=== PATIENT | male | born 1960 | race Caucasian/White ===

== ENCOUNTER 2016-12-13 17:27 | Observation (INO) | payer OTHER ==
[~2016-12-13] VITALS: Ht 182.9 cm; Wt 116.7 kg
[2016-12-13] VITALS (7 sets, daily range): BP systolic 122–159; BP diastolic 75–91
[2016-12-13 17:48] LABS: HEMOGLOBIN 13.4 g/dL (14.1-18.0); LYMPH % 28.1 % (10-50)
--- NOTE | 2016-12-13 17:58 | Emergency Room Report ---
History of Present Illness Time Seen by [id number] Presenting Problem in Triage Pt arrived:Walked Presenting Problem:POSSIBLE APPENDICITIS Onset of symptoms date/time:12/13/16/ or onset unknown for:MEDICAL HX UNKNOWN Treatment Prior to Arrival: ACUTE CARE ASSISTANT Provided by: Sepsis Risk Assessment: Temp: 98.3 B/P: 135/75 MAP: 113 Pulse: 75 Resp: 18 Recent fever? N Clinical Suspician of Infection? Y Mental Status: 1 - Regular (Normal Baseline) Sepsis Risk:Low Sepsis Risk Have you (or family members/close friends) recently traveled outside the [place]? N If Yes, where/when: Have you had exposure to infectious disease within the past month? TB? Other? Specify: Comment The patient complains of RIGHT lower quadrant abdominal pain that began last evening. He initially noticed that when he would cough or deep breathe that he would have pain in the RIGHT lower quadrant, also noticed after that that he was tender there to touch. It also hurts to go over bumps as in a car. When he lays very still or sits very still he does not have pain. No fever. The pain increased after eating today, but no vomiting. No diarrhea or constipation. No urinary symptoms. The pain only radiates when he coughs or bounces, it then radiates around to his RIGHT anterior thigh. He has had a prior cholecystectomy and umbilical hernia repair. ALLERGIES Coded Allergies: niacin (12/13/16) Home Medications Reported Medications No Known Home Medications History Medical History General Angina: No MA: No Hypertension? No Hyperlipidemia? Yes CHF? No COPD? No Asthma? No Hernia? Yes CVA? No Seizures? No Diabetes? No UTI? No Stones? No GB Disease: Yes Hepatitis? No Cataracts? No Glaucoma? No TB? No Cancer? No Immunization Hx Ped.Immunizations UTD Yes DT/Tetanus > 10 Years Ago Flu HAD IN PAS Pneumonia Never Had Surgical Hx Previous Surgery?Y SHOULDER SURGERY LOWER BACK SURGERY X2 GALLBLADDER HERNIA REPAIR Family History Family Hx Diabetes Yes CAD No Hypertension No Hyperlipidemia Yes Cancer No TB No Social History Smoking Hx Smoker: Current Every Day Smoker Tobacco: Yes Type N/A Packs/day 1 1/2 - 2 Packs Alcohol Alcohol: No Review of Systems All Other Systems Reviewed and Negative Constitutional denies fever Gastrointestinal abdominal pain, denies diarrhea, denies nausea, denies vomiting Genitourinary denies: dysuria, frequency, hematuria. Physical Exam Vital Signs Vital Signs Date Time Temp Pulse Resp B/P Pulse O2 O2 Flow FiO2 Ox Delivery Rate 12/13 1728 98.3 75 18 135/75 96 General Appearance normal appearance, WD/WN Eye Exam - bilateral eye normal exam, bilateral eye PERRL, bilateral eye EOMI Ear, Nose, Throat hearing grossly normal, normal ENT inspection Neck normal inspection, non-tender, supple, full range of motion Respiratory Status Yes: trachea midline, chest symmetrical, non tender chest. No: respiratory distress. Lung Sounds bilateral: normal breath sounds, lungs clear. Cardiovascular normal exam, regular rate/rhythm, no peripheral edema, no gallop, no JVD, no murmur, no rub, normal peripheral pulses Peripheral Pulses Pulses normal Yes Gastrointestinal normal bowel sounds, soft, no organomegaly, guarding, rebound, tenderness (RIGHT lower quadrant), positive Rovsing sign Extremities non-tender, normal range of motion, normal inspection Neurologic alert, administrative professional II-XII nml as tested, normal exam, oriented x 3 Mental status normal mood/affect Skin intact, normal color, warm/dry Medical Decision Making LABS/Meds/Orders Pt receiving controlled substance in ED? No Comment 6:30 PM: Refuses pain medication Results/Orders Laboratory Tests 12/13/16 1735: Sodium 141, Potassium 3.8, Chloride 105, Carbon Dioxide 28, BUN 20 H, Creatinine 1.3, Estimated Creat Clear 74, Estimated GFR (MDRD) 57, Glucose 119 H, Calcium 8.8, Total Bilirubin 0.3, AST 25, ALT 34, Alkaline Phosphatase 39 L, Total Protein 7.9, Albumin 4.1, Globulin 3.8 H, Albumin/Globulin Ratio 1.1, Amylase 71, Lipase 182, WBC 10.5, RBC 4.50 L, Hgb 13.4 L, Hct 40.4 L, MCV 89.8, RDW 12.7, Plt Count 236, MPV 7.9, Gran % 64.1, Gran # 6.8, Lymphocytes % 28.1, Monocytes % 5.9, Eosinophils % 1.3, Basophils % 0.6, Lymphocytes # 3.0, Monocytes # 0.6, Eosinophils # 0.1, Basophils # 0.1, PUBS MCHC 33.2, MCH 29.8 Current Medication Orders Sig/Tulio Start time Last Medication Dose Route Stop Time Status Admin Sodium Chloride 1,000 ML .STK-MED ONE 12/13 1850 DC IV Sodium Chloride 1,000 ML .Q6H40M 12/13 1845 AC 12/13 IV 12/13 2244 1850 Sodium Chloride 10 ML PRN PRN 12/13 1745 AC IV 12/14 1742 Orders Procedure Date/time Status DIET-NOTHING BY MOUTH 12/[address] ABD & PELVIS W/O CONTRAST 12/[address] ABD/PELVIS REQ 12/13 174 Active IV SALINE LOCK 12/13 174 Active URINALYSIS/COMPLETE 12/13 174 Active LIPASE 12/13 174 Complete CBC WITH AUTO DIFF 12/13 174 Complete CHEM 12 PROFILE 12/13 174 Complete AMYLASE 12/13 1741 Complete XRAY/CT/US XRAY/CT/US CT abdomen, pelvis Comment CT scan interpreted by [facility] radiologist. Faxed report received and reviewed: Acute appendicitis, no perforation or abscess. Progress - 6:40 PM: Case discussed with Dr. Connell. He will come to the emergency department to see the patient and will call the banquet houseperson on his way in to have the operating room team called in. Departure Departure Disposition Still a Patient Clinical Impression Primary Impression: Acute appendicitis Qualifiers: Acute appendicitis type: with localized peritonitis Qualified Code: K35.3 - Acute appendicitis with localized peritonitis Condition STABLE Referrals Jun Javed MD (Family) Prescriptions Current Visit Scripts No Known Home Medications ED Critical Care Critical Care No at 2000
--- NOTE | 2016-12-13 17:58 | Emergency Room Report ---
History of Present Illness Time Seen by [id number] Presenting Problem in Triage Pt arrived:Walked Presenting Problem:POSSIBLE APPENDICITIS Onset of symptoms date/time:12/13/16/ or onset unknown for:MEDICAL HX UNKNOWN Treatment Prior to Arrival: REGIONAL LIAISON Provided by: Sepsis Risk Assessment: Temp: 98.3 B/P: 135/75 MAP: 113 Pulse: 75 Resp: 18 Recent fever? N Clinical Suspician of Infection? Y Mental Status: 1 - Regular (Normal Baseline) Sepsis Risk:Low Sepsis Risk Have you (or family members/close friends) recently traveled outside the [place]? N If Yes, where/when: Have you had exposure to infectious disease within the past month? TB? Other? Specify: Comment The patient complains of RIGHT lower quadrant abdominal pain that began last evening. He initially noticed that when he would cough or deep breathe that he would have pain in the RIGHT lower quadrant, also noticed after that that he was tender there to touch. It also hurts to go over bumps as in a car. When he lays very still or sits very still he does not have pain. No fever. The pain increased after eating today, but no vomiting. No diarrhea or constipation. No urinary symptoms. The pain only radiates when he coughs or bounces, it then radiates around to his RIGHT anterior thigh. He has had a prior cholecystectomy and umbilical hernia repair. ALLERGIES Coded Allergies: niacin (12/13/16) Home Medications Reported Medications No Known Home Medications History Medical History General Angina: No IN: No Hypertension? No Hyperlipidemia? Yes CHF? No COPD? No Asthma? No Hernia? Yes CVA? No Seizures? No Diabetes? No UTI? No Stones? No GB Disease: Yes Hepatitis? No Cataracts? No Glaucoma? No TB? No Cancer? No Immunization Hx Ped.Immunizations UTD Yes DT/Tetanus > 10 Years Ago Flu HAD IN PAS Pneumonia Never Had Surgical Hx Previous Surgery?Y SHOULDER SURGERY LOWER BACK SURGERY X2 GALLBLADDER HERNIA REPAIR Family History Family Hx Diabetes Yes CAD No Hypertension No Hyperlipidemia Yes Cancer No TB No Social History Smoking Hx Smoker: Current Every Day Smoker Tobacco: Yes Type N/A Packs/day 1 1/2 - 2 Packs Alcohol Alcohol: No Review of Systems All Other Systems Reviewed and Negative Constitutional denies fever Gastrointestinal abdominal pain, denies diarrhea, denies nausea, denies vomiting Genitourinary denies: dysuria, frequency, hematuria. Physical Exam Vital Signs Vital Signs Date Time Temp Pulse Resp B/P Pulse O2 O2 Flow FiO2 Ox Delivery Rate 12/13 1728 98.3 75 18 135/75 96 General Appearance normal appearance, WD/WN Eye Exam - bilateral eye normal exam, bilateral eye PERRL, bilateral eye EOMI Ear, Nose, Throat hearing grossly normal, normal ENT inspection Neck normal inspection, non-tender, supple, full range of motion Respiratory Status Yes: trachea midline, chest symmetrical, non tender chest. No: respiratory distress. Lung Sounds bilateral: normal breath sounds, lungs clear. Cardiovascular normal exam, regular rate/rhythm, no peripheral edema, no gallop, no JVD, no murmur, no rub, normal peripheral pulses Peripheral Pulses Pulses normal Yes Gastrointestinal normal bowel sounds, soft, no organomegaly, guarding, rebound, tenderness (RIGHT lower quadrant), positive Rovsing sign Extremities non-tender, normal range of motion, normal inspection Neurologic alert, medical health researcher II-XII nml as tested, normal exam, oriented x 3 Mental status normal mood/affect Skin intact, normal color, warm/dry Medical Decision Making LABS/Meds/Orders Pt receiving controlled substance in ED? No Comment 6:30 PM: Refuses pain medication Results/Orders Laboratory Tests 12/13/16 1735: Sodium 141, Potassium 3.8, Chloride 105, Carbon Dioxide 28, BUN 20 H, Creatinine 1.3, Estimated Creat Clear 74, Estimated GFR (MDRD) 57, Glucose 119 H, Calcium 8.8, Total Bilirubin 0.3, AST 25, ALT 34, Alkaline Phosphatase 39 L, Total Protein 7.9, Albumin 4.1, Globulin 3.8 H, Albumin/Globulin Ratio 1.1, Amylase 71, Lipase 182, WBC 10.5, RBC 4.50 L, Hgb 13.4 L, Hct 40.4 L, MCV 89.8, RDW 12.7, Plt Count 236, MPV 7.9, Gran % 64.1, Gran # 6.8, Lymphocytes % 28.1, Monocytes % 5.9, Eosinophils % 1.3, Basophils % 0.6, Lymphocytes # 3.0, Monocytes # 0.6, Eosinophils # 0.1, Basophils # 0.1, PUBS MCHC 33.2, MCH 29.8 Current Medication Orders Sig/Tulio Start time Last Medication Dose Route Stop Time Status Admin Sodium Chloride 1,000 ML .STK-MED ONE 12/13 1850 DC IV Sodium Chloride 1,000 ML .Q6H40M 12/13 1845 AC 12/13 IV 12/13 2244 1850 Sodium Chloride 10 ML PRN PRN 12/13 1745 AC IV 12/14 1742 Orders Procedure Date/time Status DIET-NOTHING BY MOUTH 12/[address] ABD & PELVIS W/O CONTRAST 12/[address] ABD/PELVIS REQ 12/13 174 Active IV SALINE LOCK 12/13 174 Active URINALYSIS/COMPLETE 12/13 174 Active LIPASE 12/13 174 Complete CBC WITH AUTO DIFF 12/13 174 Complete CHEM 12 PROFILE 12/13 174 Complete AMYLASE 12/13 1741 Complete XRAY/CT/US XRAY/CT/US CT abdomen, pelvis Comment CT scan interpreted by [facility] radiologist. Faxed report received and reviewed: Acute appendicitis, no perforation or abscess. Progress - 6:40 PM: Case discussed with Dr. Connell. He will come to the emergency department to see the patient and will call the supervisor char house on his way in to have the operating room team called in. Departure Departure Disposition Still a Patient Clinical Impression Primary Impression: Acute appendicitis Qualifiers: Acute appendicitis type: with localized peritonitis Qualified Code: K35.3 - Acute appendicitis with localized peritonitis Condition STABLE Referrals Jun Javed MD (Family) Prescriptions Current Visit Scripts No Known Home Medications ED Critical Care Critical Care No at 2000
--- NOTE | 2016-12-13 19:41 | HISTORY AND PHYSICAL REPORT ---
History of Present Illness Chief Complaint: Abdominal pain History of Present Illness: Approximately 24-hour history of RIGHT lower quadrant abdominal pain becoming progressively more severe. Presented to the emergency department. Workup included CT scan revealing findings of non-complicated appendicitis. Past Medical History Denies: CAD. Surgical History Previous Surgery?Y SHOULDER SURGERY LOWER BACK SURGERY X2 GALLBLADDER HERNIA REPAIR Allergies Coded Allergies: niacin (12/13/16) Medications: Reported Medications No Known Home Medications Smoking Hx Tobacco: Yes Smoker: Current Every Day Smoker Type: N/A Packs/day: 1 1/2 - 2 Packs Are you/the child exposed to second-hand smoke: Yes Alcohol Alcohol: No Hx of Drug Use Drug Use? No Review of Systems Constitutional No: chills. Skin No: diaphoresis. Immune/allergy No: anaphalaxis. Eyes No: vision loss. ENT No: hearing loss. Respiratory No: shortness of air. Cardiovascular No: chest pain. GI No: abdomen. (male) No: hematuria. Musculoskeletal No: extremity pain. Heme No: bleeding. Endocrine No: cold intolerance. Neurological No: change in LOC. Physical Exam Exam General appearance no acute distress, alert Respiratory clear to auscultation Cardiovascular normal heart sounds Findings/Data He has tenderness with voluntary guarding in the RIGHT lower quadrant. Dx/assessment/plan Problem List 1. Acute appendicitis Code status: full code Plan: Plan for urgent appendectomy with postoperative admission. at 1941
--- NOTE | 2016-12-13 21:57 | Operative Note ---
Surgeon/Diagnoses Surgeon/Computer Game Designer(s) Date of procedure: 12/13/16 Surgeon: Forrest Connell Diagnoses Pre-op diagnosis: Acute appendicitis Post-op diagnosis Same Procedure Procedure Procedure: Laparoscopic appendectomy Indications: DELORES VASQUEZ is a 56 year-old Male with a history of RIGHT lower quadrant abdominal pain beginning approximately 24 hours prior to presentation. It became progressively more severe. He presented to the emergency department in the evening of 12/13/16. CT scan revealed findings consistent with nonperforated appendicitis. Findings: He had a severely inflamed markedly thickened distended tense appendicitis with possible periappendiceal abscess. It was partially retrocecal and quite adherent to the terminal ileum. Procedure Description: Consent was obtained and patient was taken to the operating room. He was given preoperative intravenous antibiotics. Gen. anesthesia was induced via endotracheal tube. His abdomen was prepped in the standard surgical fashion. Subumbilical skin incision was made and while performing abdominal wall lifted the Veress needle was inserted. CO2 pneumoperitoneum was achieved 15 mmHg. A 12 mm trocar was inserted the umbilicus. Intracranial contents were visualized. He was positioned in Trendelenburg LEFT side down. 5 mm trocar was inserted in the suprapubic location and additional 5 mm trocar was inserted in the RIGHT upper abdomen. 10 mm laparoscope was replaced the 5 mm 30 degree laparoscope. There was a tense inflammatory response around the tip of the cecum. This was the inflamed thickened firm indurated appendix. It was grasped with an endoscopic Carina. The lateral peritoneal attachments were divided with Valentin ultrasonic harmonic gianna. Prolonged dissection was carried out ultimately delivering the appendix and dissecting down to the appendiceal base. The mesoappendix was divided with Valentin ultrasonic harmonic gianna. Hemoclip was placed on the appendiceal artery. Careful blunt dissection was used to dissected the appendix free from the terminal ileum where it was adherent. Once the appendix was dissected down to its base the appendix was divided with a JAVID linear cutting stapling device. The appendix was placed within an Endo Catch retrieval device and removed from the peritoneal cavity via the umbilical trocar site which required some extension of the fascial incision for delivery. The staple line was inspected for hemostasis and integrity. Pericecal region was irrigated and aspirated until clear. Trochars were removed and CO2 pneumoperitoneum was evacuated. Fascia at the umbilicus was closed with several interrupted 0 Vicryl sutures. Local anesthetic was infiltrated in all incisions. Skin incisions are closed 4-0 Monocryl in a subcuticular fashion. Steri-Strips and clean dry sterile dressings were applied. There were no immediate complications. EBL (ml): 75 Anesthesia: GETA Specimens: Appendix Disposition Disposition: To PACU at 3661
--- NOTE | 2016-12-13 22:08 | Anesthesia Record ---
Anesthesia Record Part II Discharge time: 2229 Destination: Second Floor (201) PACU nurse assessment review? Yes Patient is: Stable Anesthesia complications? No at 3179
--- NOTE | 2016-12-13 22:08 | Anesthesia Record ---
Anesthesia Record Part I Total IV fluids: 1300 EBL (ml): 25 Urine Output: 350 B/P: 146/75 % SaO2: 90 Pulse: 75 Resps: 18 Temp: 97.4 Patient is: Mask O2, Stable Stable to PACU at: 2200 at 2208
[2016-12-13] MEDS ORDERED: Triglide160 MG PO (23:06)
[2016-12-13] MEDS ORDERED: CRESTOR40 MG PO (23:06)
[2016-12-13] MEDS ORDERED: MELOXICAM15 MG PO (23:07)
[2016-12-13] MEDS ORDERED: PANTOPRAZOLE SO40 MG PO (23:08)
[2016-12-13] MEDS ORDERED: LEVOTHYROXIN0.175 MG PO (23:08)
[2016-12-13] MEDS ORDERED: EZETIMIBE10 M1 PO (23:10)
[2016-12-14] VITALS (14 sets, daily range): BP systolic 107–137; BP diastolic 50–87
[2016-12-14 06:33] LABS: URINE BILIRUBIN - DIPSTICK NEGATIVE (NEG); URINE BLOOD NEGATIVE (NEG)
[2016-12-14 07:10] LABS: HEMOGLOBIN 12.2 g/dL (14.1-18.0); LYMPH # 0.9 K/mm3 (0.7-4.5); LYMPH % 6.5 % (10-50)
--- NOTE | 2016-12-14 07:31 | RADIOLOGY REPORT PS360 ---
CT ABD PELVIS W/O CONTRAST CLINICAL INDICATION: ABD PAIN ORDERING PHYSICIAN: Forrest Connell MD PATIENT AGE: 56 years COMPARISON: 04/27/2007 TECHNIQUE: Axial images obtained with sagittal and coronal reformats. PROCEDURE: Oral Contrast: None IV Contrast: None . FINDINGS: Lung bases are clear. There are coronary artery calcifications. Fluid is present in the distal esophagus suggesting reflux. There is mild hepatic steatosis. Prior cholecystectomy. The spleen, adrenal glands, and pancreas are unremarkable. The appendix is dilated with stranding of the periappendiceal fat consistent with appendicitis. The appendix measures up to 15 mm in diameter. No obvious abscess or perforation. No intestinal obstruction or free air. No renal calculi or hydronephrosis. There is decreased attenuation involving the left kidney mid aspect measuring 16 mm consistent with a renal cyst which is unchanged. Left renal cortical scarring No pelvic mass or abnormal fluid collection. Postsurgical changes lumbar spine with fusion at L5-S1 with degenerative disc disease and osteosclerosis at L4-L5. IMPRESSION: 1. The findings are consistent with acute appendicitis. No obvious abscess or perforation 2. Other nonacute findings as described above
--- NOTE | 2016-12-14 08:58 | PHARMACY CLINIC NOTE ---
Patient Demographics Patient Demographics Admission date: 12/13/16 Date: 12/14/16 Time: 0858 Allergies Coded Allergies: niacin (12/13/16) HEIGHT- FT: 6 IN: 0.00 K.688 VTE General Information Labs: Laboratory Tests 12/14 12/13 0608 1735 Hematology Hgb (14.1 - 18.0 g/dL) 12.2 L 13.4 L Hct (42.0 - 52.0 %) 36.8 L 40.4 L Plt Count (142 - 424 K/mm3) 200 236 Disclaimer The following section includes nursing documentation that has been pulled in for pharmacy review. Patient's VTE score: 2 Patient's VTE Risk: VERY LOW RISK VTE prophylaxis NQF 0371 VTE prophylaxis ordered? Yes Type of prophylaxis/treatment: ICD at 0858
--- NOTE | 2016-12-14 09:31 | SURGEON PROGRESS NOTE ---
Subjective data Subjective data: DELORES VASQUEZ is a 56 M .Patient denies complaint of nausea and vomitting.He reports his last pain level as 2 on a 0-10 pain scale. Patient without significant complaints. He does state that he is "sore". He has tolerated clear liquids. He does feel somewhat bloated. Assessment findings Assessment Exam General appearance: normal appearance, alert ABD: normal bowel sounds, distended Comment: His abdomen is somewhat distended consistent with postoperative ileus. Trocar site dressings are clean and intact. Patient plan Plan: Antibiotics Additional data: Patient had significant suppurative, possibly focally abscessed, appendicitis. He also has findings consistent with mild ileus. He has somewhat of a progressive leukocytosis as expected. For these reasons plan to continue inpatient care with intravenous antibiotics. Will decrease IV fluids. Continue to limit to full liquid diet with no carbonated beverages. at 0930
[2016-12-14 09:49] LABS: NEUTROPHILS 83 % (42-76)
[2016-12-15 03:41] VITALS: BP 131/84
[2016-12-15 07:26] VITALS: BP 139/86
--- NOTE | 2016-12-15 08:10 | SURGEON PROGRESS NOTE ---
Subjective data Subjective data: DELORES VASQUEZ is a 56 M .Patient denies complaint of nausea and vomitting.He reports his last pain level as 4 on a 0-10 pain scale. Complains of some "soreness". Tolerating full liquids without nausea. Assessment findings Assessment Exam General appearance: normal appearance, alert ABD: soft Comment: Slightly distended. Incisions clean. Patient plan Plan: Recheck CBC Additional data: Check CBC. If leukocytosis resolving probable discharge home. at 0810
[2016-12-15 08:23] LABS: HEMOGLOBIN 11.7 g/dL (14.1-18.0); LYMPH # 1.4 K/mm3 (0.7-4.5); LYMPH % 12.3 % (10-50)
[2016-12-15 08:31] VITALS: BP 139/86
[2016-12-15] MEDS ORDERED: HYDROCODONE/APA1 TA8 PO (08:41)
--- NOTE | 2016-12-15 08:47 | DISCHARGE SUMMARY STANDARD ---
Demographics Admit date: 12/13/16 Discharge date: 12/15/16 History of present illness History of present illness Approximately 24-hour history of RIGHT lower quadrant abdominal pain becoming progressively more severe. Presented to the emergency department. Workup included CT scan revealing findings of non-complicated appendicitis. Hospital Course Hospital Course: Patient was taken directly to the operating room where he underwent laparoscopic appendectomy. He was found to have a suppurative significantly inflamed large tense appendix without any perforation. However, there was evidence of possible intra-appendiceal abscess and in the process of dissecting the appendix there was unavoidable rent but any spillage was contained. Please see operative dictation for complete details. He was admitted postoperatively for continuation of intravenous antibiotics and observation for ileus. He was continued on Unasyn. He was given a clear liquid diet that night which he did partake in vigorously drinking a pitcher of water upon arriving to the floor postoperatively. He had some abdominal distention minor the following morning but was without nausea. He was given a full liquid diet. Due to leukocytosis of 13,000 and findings a mild ileus, in light of the intraoperative findings, plan was made for continued inpatient stay with intravenous antibiotics. Following morning he was feeling better. He is passing gas. He had been tolerating full liquid diet without difficulty. White blood cell count had essentially normalized to 11,000. Plan was made for discharge home. Discharge diagnoses Problem List 1. Acute appendicitis Medications Medications: Discharge meds are as noted. He is given a new prescription for Lortab 5 mg (number 21) Follow up Follow up in office in: 2 WEEKS with: Forrest Connell MD at 0846
[2016-12-15 11:30] VITALS: BP 139/86
== END 2016-12-15 11:30 | disposition home or self-care (01) ==
LOC: ER 17:27 → SDC 18:54 → 2ND 22:21
PROVIDERS: Emergency Medicine; Surgery
PROC: 0DTJ4ZZ Resection of Appendix, Percutaneous Endoscopic Approach (ICD-10-PCS; principal; 2016-12-13 20:00)
DX: K35.3 Acute appendicitis with localized peritonitis (principal); Z72.0 Tobacco use
CPT/HCPCS: G0378; J0131; J2710